=== PATIENT | male | born 1990 | race Two or more races ===

== ENCOUNTER 2016-11-04 21:54 | Emergency (ER) | payer SELFPAY ==
[2016-11-04] MEDS ORDERED: Ondansetron HCl/PF 4 MG/2 ML Vial ONE (22:36)
[2016-11-04] MEDS ORDERED: Ketorolac Tromethamine 30 MG/ML VIAL ONE (22:36)
[2016-11-04] MEDS ORDERED: Ondansetron ODT 4 MG TAB ONE (22:36)
[2016-11-04 22:46] LABS: #Lymphocytes 1.5 thou/uL (1.20-3.40); #Monocytes 0.5 thou/uL (0.11-0.59); #Neutrophils 3.8 thou/uL (1.40-6.50); %Basophils 0.1 % (0.0-1.0); %Eosinophils 0.2 % (0.0-10.0); %Lymphocytes 26.1 % (21.0-51.0); Hematocrit 49.8 % (42.0-52.0); Red Blood Cell (RBC) Count 5.62 mill/uL (4.70-6.10); White Blood Cell (WBC) Count 5.9 thou/uL (4.8-10.8)
--- NOTE | 2016-11-04 23:04 | RAD ---
ACUTE ABDOMINAL SERIES 11/04/16 HISTORY: Left lower quadrant abdominal pain for three days. CHEST X-RAY: Cardiac silhouette and pulmonary vasculature are within normal limits. The lungs are clear. No free intraperitoneal gas seen beneath the hemidiaphragm. Osseous structures are intact. UPRIGHT AND SUPINE VIEWS OF THE ABDOMEN: There is a nonspecific bowel gas pattern with a small amount of retained fecal material seen through out the colon. No suspicious calcifications are seen. Osseous structures are intact. IMPRESSION: Nonspecific bowel gas pattern. POS: [facility]
[2016-11-04 23:06] LABS: ALT (SGPT) 19 U/L (8-55); AST (SGOT) 27 U/L (5-34); Alkaline Phosphatase 60 U/L (40-150); Anion Gap 13 mmol/L (10-20); BUN (Urea Nitrogen) 11 mg/dL (8.9-20.6); Bilirubin, Total Less than 0.2 mg/dL (0.2-1.2); Calc. Creatinine Clearance 0 mL/min (70-130); Calcium 8.5 mg/dL (7.8-10.44); Carbon Dioxide 25 mmol/L (22-29); Chloride 102 mmol/L (98-107); Estimated GFR-MDRD Greater than 90; Globulin 3.1 g/dL (2.4-3.5); Lipase 29 U/L (8-78); Protein, Total 6.9 g/dL (6.0-8.3)
== END 2016-11-04 23:20 | disposition home or self-care (01) ==
LOC: ERS 21:54
DX: K02.9 Dental caries, unspecified (principal); K59.00 Constipation, unspecified; R11.0 Nausea; K03.81 Cracked tooth; F31.9 Bipolar disorder, unspecified; F17.210 Nicotine dependence, cigarettes, uncomplicated
CPT/HCPCS: 36415; 74022; 80053; 83690; 85025; 87081; 87430; 96372; J1885; J2405; Q0162